=== PATIENT | female | born 1940 | race Caucasian/White ===

== ENCOUNTER 2021-11-02 14:10 | Outpatient (REF) | payer MEDICARE, MEDICAID, SELFPAY ==
--- NOTE | ~2021-11-02 | CT_ITS ---
NONCONTRAST CT OF THE CERVICAL, THORACIC, AND LUMBAR SPINE CLINICAL INFORMATION: Fall with pain and osteoporosis. COMPARISON: None TECHNIQUE: Multidetector CT acquisition of the cervical, thoracic, and lumbar spine obtained without contrast. FINDINGS: CERVICAL SPINE: Reversal the cervical lordosis with a kyphosis centered at C4. Rightward convex scoliotic curvature of the cervical spine. Anterior subluxation of C2 on C3 and C3 on C4. Severe disc volume loss at C3-C4, C4-C5, and C5-C6. Moderate disc volume loss at C6-C7. No acute fractures no acute subluxations. Craniocervical junction is intact. Intracranially there is partially imaged global cerebral volume loss and chronic microangiopathy. There is atherosclerotic calcification involving the carotid bifurcations bilaterally. Uncovertebral joint spurring and facet arthropathy result in severe left C2-C3, severe bilateral C3-C4, moderate left C4-C5, moderate left C5-C6, and moderate left C6-C7 foraminal stenosis. Disc osteophyte and ligamentum flavum thickening result in multilevel central canal stenosis throughout the cervical spine with suspected mass effect on the cervical spinal cord at the C2-C3 and C3-C4 levels that would be better assessed with MRI. THORACIC SPINE: There are indeterminate age upper endplate compression fractures at the T11 and T12 levels and there is mild indeterminate age biconcave height loss at T10. The remaining thoracic vertebral body heights are maintained. There are partially healed chronic appearing fractures involving the T9 and T10 spinous processes. Old healed left 11th and 12th rib fractures. There is mild anterior subluxation of T2 on T3, T3 on T4, T4-T5, and T5 and T6. There are no suspicious intraosseous lesions. There is dependent atelectasis at the lung bases. There is a 7 mm pulmonary nodule within the posterior aspect of the right lung on image 87 of series [address] for [address] a diagnostic CT of the chest is recommended to assess for additional pulmonary nodules and establish further follow-up recommendations. There is extensive atherosclerotic calcification throughout the thoracic aorta and there is a moderate-sized hiatal hernia. LUMBAR SPINE: Severe leftward convex scoliotic curvature of the lumbar spine associated with grade 2 left lateral listhesis of L3 on L4. Vertebral body burst fractures with posterior retropulsion at the L1 and L4 levels. There is significant retropulsion at L4 resulting in suspected severe central canal stenosis but should be correlated for cauda equina compression symptoms. At L1, there is a severe vertebral body burst fracture with retropulsion likely resulting in mild to moderate narrowing of the central canal. There are bilateral chronic appearing sacral fractures with adjacent sclerosis. There is cortical offset at S1-S2 and partially bridging bone formation across the site of cortical offset. Old healed left L3 transverse process fracture. There is an intraosseous hemangioma within the L5 vertebral body. Chronic appearing inferior endplate height loss at L3. Gallbladder surgically absent. Aortoiliac atherosclerotic calcification. Left renal atrophy. At L1-L2, right lateral disc osteophyte and facet arthropathy result in moderate to severe right foraminal stenosis with compression of the exiting right nerve root. At L2-L3, there is annular disc bulge the superimposed right lateral disc osteophyte protrusion and there is bilateral facet arthropathy. Right subarticular zone stenosis with suspected mass effect on the traversing right L3 nerve root and moderate right foraminal stenosis with mass effect on the extraforaminal right L2 nerve root. At L3-L4, L4 upper endplate retropulsion results in markedly severe central canal stenosis and disc osteophyte and facet arthropathy result in severe bilateral foraminal stenosis with compression of the exiting L3 nerve roots bilaterally. At L4-L5, annular disc bulge and severe bilateral facet arthropathy and ligamentum flavum thickening. There is likely mild narrowing of the central canal and there is severe left-sided foraminal stenosis with compression of the exiting left L4 nerve root. At L5-S1 there is a diffuse annular disc bulge and there is severe bilateral facet arthropathy and ligamentum flavum thickening. No central canal stenosis. Severe left foraminal stenosis with compression of the exiting left L5 nerve root. CT/CT cervical spine wo con IMPRESSION: - At L1, there is a severe age-indeterminate vertebral body burst fracture with retropulsion likely resulting in mild to moderate narrowing of the central canal. - At L4 there is a severe age-indeterminate vertebral body burst fracture with associated retropulsion resulting in markedly severe central canal stenosis at the L3-L4 level. This fracture can be definitively aged with MRI as clinically indicated. Recommend correlating for clinical signs of cauda equina compression. - There are bilateral chronic appearing sacral fractures with adjacent sclerosis. There is cortical offset at S1-S2 and partially bridging bone formation across the site of cortical offset. - Severe leftward convex scoliotic curvature of the lumbar spine associated with grade 2 left lateral listhesis of L3 on L4. Advanced spondylitic changes throughout the lumbar spine resulting in multilevel subarticular zone and multilevel foraminal stenosis with compression of multiple traversing and exiting nerve roots as discussed in detail above. - There are indeterminate age upper endplate compression fractures at the T11 and T12 levels and there is mild indeterminate age biconcave height loss at T10. A MRI can be obtained to age these fractures as clinically indicated if MRI is not contraindicated. There are partially healed chronic appearing fractures involving the T9 and T10 spinous processes. Old healed left 11th and 12th rib fractures. There is extensive atherosclerotic calcification throughout the thoracic aorta and there is a moderate-sized hiatal hernia. - Cervical kyphoscoliosis as described. Severe degenerative disc disease at C3-C4, C4-C5, and C5-C6. Uncovertebral joint spurring and facet arthropathy result in severe left C2-C3, severe bilateral C3-C4, moderate left C4-C5, moderate left C5-C6, and moderate left C6-C7 foraminal stenosis. Disc osteophyte and ligamentum flavum thickening result in multilevel central canal stenosis throughout the cervical spine with suspected mass effect on the cervical spinal cord at the C2-C3 and C3-C4 levels that would be better assessed with MRI. - There is a 7 mm pulmonary nodule within the posterior aspect of the right lung on image 87 of series [address] for which a diagnostic CT of the chest is recommended to assess for additional pulmonary nodules and establish further follow-up recommendations. Covering provider paged with these findings at 4:25 PM on 11/04/2021.
== END 2021-11-02 14:11 | disposition home or self-care (01) ==
LOC: HO.CT 14:10
PROVIDERS: PCP Internal Medicine; Visit Provider Nurse Practitioner Gerontology
DX: M54.50 Low back pain, unspecified (principal); M54.6 Pain in thoracic spine; M85.80 Other specified disorders of bone density and structure, unspecified site; Z91.81 History of falling
CPT/HCPCS: 72125; 72128; 72131

== ENCOUNTER 2021-11-04 18:51 | Emergency (ER) | payer MEDICARE, MEDICAID, SELFPAY ==
[2021-11-04 19:08] VITALS: BP 140/58; BP 146/83; PULSE 63; PULSE 68; RESP 16; TEMP 37.1; O2SAT 95; O2SAT 97; BMI 20.6
[2021-11-04 19:59] VITALS: BP 133/52; PULSE 64; RESP 14; TEMP 36.8; O2SAT 98
--- NOTE | 2021-11-04 20:43 | ED_ITS ---
HPI - General Adult General Chief complaint: Recheck/Abnormal Lab/Rx Stated complaint: SNF-spinal fx VSS Time Seen by Provider: 11/04/21 20:32 History of Present Illness HPI narrative: 81-year-old female who was sent to the emergency department from her nursing facility for evaluation abnormal findings on a CT scan of the back. According to the nursing notes the patient had a fall on 10/23/2021. CT scans were done today of the patient's cervical, thoracic and lumbar sacral back. Radiologist noted multiple fractures of on determined age and recommended MRI if clinically appropriate. On my review of this reading of following are the most significant: - At L1, there is a severe age-indeterminate vertebral body burst fracture with retropulsion likely resulting in mild to moderate narrowing of the central canal. ? - At L4 there is a severe age-indeterminate vertebral body burst fracture with associated retropulsion resulting in markedly severe central canal stenosis at the L3-L4 level. This fracture can be definitively aged with MRI as clinically indicated. Recommend correlating for clinical signs of cauda equina compression. There are indeterminate age upper endplate compression fractures at the T11 and T12 levels and there is mild indeterminate age biconcave height loss at T10. A MRI can be obtained to age these fractures as clinically indicated if MRI is not contraindicated. The patient has no complaints. The patient states she has pain all over her entire body. She denies any numbness or weakness. She denies loss of bowel or bladder control. ? Related Data Allergies Allergy/AdvReac Type Severity Reaction Status Date / Time No Known Allergies Allergy Verified 11/04/21 19:12 Review of Systems Verdana 4l Review of Systems: Yes all other systems are reviewed and Verdana 4d are negative [facility] Past Medical History [facility] Narrative: Past medical history: Altered mental status, arthritis multiple sites, hypertensive heart disease without heart failure, hyperlipidemia, dysphagia, muscle weakness generalized, osteoporosis, overactive bladder, unsteady and feet, gait mobility abnormalities, weakness, dementia without behavioral disturbances. Social history: The patient is a resident of a long-term care facility. Social History Social History Advance Directives: No Advance Directives Information Provided: Yes Physical Exam Verdana 4l Vital Signs: Verdana 4d Verdana 4d Vital Signs: Verdana 4d Verdana 4Bd Last Vital Signs Verdana 4d Maintenance Associate New 4d Maintenance Associate New 4d Temp 98.2 F 11/04/21 19:59 Maintenance Associate New 4d Pulse 57 11/04/21 20:55 Maintenance Associate New 4d Resp 18 11/04/21 20:55 BP 161/50 H 11/04/21 20:55 Pulse Ox 97 11/04/21 20:55 BMI result Body Mass Index 20.6 Const: Other: Awake, alert, female patient, oriented to person, lacks insight as to why she is here in the emergency department Orientation/consciousness: oriented to person HENMT: Head: Yes normal to inspection, Yes normocephalic and Yes atraumatic Ears: external ears normal General nose exam: Normal external nose present Face and sinus: Yes normal facial exam Mouth: Normal oral and palatal mucosa present Throat: Yes posterior oropharynx normal Eyes: General: appearance normal, both eyes and all related structures Pupils: Equal, round and reactive pupils present Neck: Neck: Yes normal visual inspection, Yes no lymphadenopathy, Yes trachea midline and Yes supple Chest: Chest palpation & inspection: normal inspection of the chest and normal palpation of entire chest wall Resp: Effort & Inspection: normal respiratory effort and able to speak in complete sentences Auscultation: clear to auscultation bilaterally Cardio: Rate: regular rate Rhythm: regular rhythm Heart sounds: S1 normal heart sound present, S2 normal heart sound present and no murmurs GI: Inspection: Yes normal to inspection Palpation (GI): Soft to palpation, nontender and no guarding Auscultation: normal bowel sounds Back/Spine/Pelvis: Other: Patient has no localizing tenderness of her vertebrae, she does have diffuse tenderness her paraspinal muscles bilaterally, there is no ecchymosis or soft tissue swelling noted. She has negative straight leg raises bilaterally. She moves all extremities symmetrically with good strength. The patient has normal light touch to both her upper and lower extremities. The patient's has normal sensory to pinprick around her anus and perirectal area. The patient's rectal tone is normal and she is able to squeeze down with her rectum on my finger without any difficulty Skin: General skin exam: no rashes or lesions noted Neuro: General: oriented to person Cranial nerves: Yes CN's II-XII intact bilaterally and Yes Equal, round and reactive pupils present Cognition (Neuro): normal cognition Motor exam (neuro): Other motor observations present (Strength is symmetric throughout her upper and lower extremity) Extrem: General: Yes normal to inspection Psych: Appearance: grossly normal Speech and movement: Normal speech and movement present Affect: normal affect Attitude: cooperative Thought process: Normal thought process present Course Course Course Narrative: 81-year-old female who had a fall on 10/23/2020, the patient had a CT scan of the cervical, thoracic and lumbar spine done on 11/02/2021. The CT scans had multiple findings were consistent with arthritis and degenerative joint disease which is appropriate for her age. There also multiple findings of compression fractures of undetermined it age. The radiologist did recommend MRI of the thoracic and lumbar spine if there was a clinical indication especially if there was signs of caudal equinus syndrome. The patient has no localizing tenderness with palpation over her vertebrae. She has symmetric upper and lower extremity strength. She has normal upper and lower extremity light touch sensation. She has no perirectal numbness, she is able to feel pinprick in this area. She has normal rectal tone and there has been no reported incontinence of stool. Given these findings, I do not think that the patient needs an emergent MRI and the patient can be discharged back to her care facility. If her provider feels that she needs an MRI to determine the age of these fractures then this can be pursued as an outpatient. The primary contact is listed as Verónica Dawn who is an real estate attorney. I attempted to contact the provider covering for the patient's nursing facility however there does not appear to be a contact service and the ED study hall supervisor left a message on the voicemail. Therefore, my plan is to discharge the patient back to her facility. Discharge Plan Discharge Clinical Impression: Fall, Chronic vertebral fracture due to osteoporosis Patient Disposition: Home, Self-Care Additional Instructions: I did review the CT scans of the patient's cervical, thoracic spine and lumbar sacral spine. The reading has multiple abnormalities that I believe are consistent with chronic osteoporosis and compression fractures. The patient is able to move all her extremities symmetrically with good strength, she has normal sensory exam. The patient has no localizing tenderness of her vertebrae on my examination. The patient has no alton rectal anesthesia and feel pinprick around her anus without any difficulty. Her rectal exam revealed good sphincter tone. Given these findings, I do not think that the patient has any acute neurologic deficit or evidence for cauda equina syndrome. I do not think the patient needs an emergent or urgent MRI and if the provider caring for her wants to determine the age of her compression fractures they can get an MRI as an outpatient. I attempted to call the on-call provider service and left a message on the voicemail. I contacted the patient's primary contact and this is an real estate attorney with a voicemail.
--- NOTE | 2021-11-04 20:54 | PC.NURSE ---
This RN to bedside with Dr Benitez for rectal exam
[2021-11-04 20:55] VITALS: BP 161/50; PULSE 57; RESP 18; O2SAT 97
--- NOTE | 2021-11-04 22:07 | PC.NURSE ---
This RN calling [facility], speaking to Brigitte ROSE at facility and notifying of Dr Benitez's plan for DC with outpt MRI. Brigitte asking to speak to Dr Benitez. Dr Benitez on phone at this time speaking with Brigitte RN
[2021-11-04 23:50] VITALS: BP 161/59; PULSE 62; RESP 17; TEMP 36.6; O2SAT 98
== END 2021-11-05 00:39 | disposition home or self-care (01) ==
PROVIDERS: Emergency Provider Emergency Medicine Emergency Medical Services
DX: M80.88XA Other osteoporosis with current pathological fracture, vertebra(e), initial encounter for fracture (principal); R79.89 Other specified abnormal findings of blood chemistry; Z79.899 Other long term (current) drug therapy
CPT/HCPCS: 99283

== ENCOUNTER 2024-04-10 11:17 | Inpatient (IN) | payer MEDICARE, MEDICAID, SELFPAY ==
[2024-04-10] VITALS (8 sets, daily range): BP systolic 136–192; BP diastolic 57–90; PULSE 72–95; RESP 14–20; TEMP 36.2–37.8; O2SAT 95–99; BMI 20.5
--- NOTE | ~2024-04-10 | XR_ITS ---
EXAMINATION: XR HIP, RIGHT CLINICAL INFORMATION: Pain following fall COMPARISON: None available. TECHNIQUE: Two views of the right hip and AP pelvis FINDINGS: There is no acute fractures seen in the pelvis or right hip. There is healed fracture deformity of inferior ramus pubis on the right. Vascular calcifications present. XR/XR hip RT min 2V IMPRESSION: No acute fracture
--- NOTE | ~2024-04-10 | XR_ITS ---
EXAMINATION: XR CHEST CLINICAL INFORMATION: Femur COMPARISON: None available. TECHNIQUE: Frontal view of the chest was obtained. FINDINGS: No significant abnormality is noted involving the heart, lungs, mediastinum, bony thorax or soft tissues. XR/XR chest 1V IMPRESSION: Unremarkable examination.
--- NOTE | ~2024-04-10 | CT_ITS ---
EXAMINATION: CT ABDOMEN AND PELVIS WITH CONTRAST CLINICAL INFORMATION: Abdominal pain COMPARISON: CT lumbar spine from 11/02/2021 TECHNIQUE: Multidetector volumetric images were obtained from the superior aspect of the liver through the pubic symphysis following administration 85 mL of Omnipaque 350 intravenous contrast. Sagittal and coronal reformatted images were obtained on the technologist's workstation. Oral contrast: No This CT examination was performed using dose optimization techniques as appropriate, variously including the following: *Automated exposure control *Adjustment of mA and/or kV according to patient size (this includes techniques or standardized protocols for targeted exams where dose is matched to indication/reason for exam; i.e. extremities or head) *Use of iterative reconstruction technique DLP: 484 mGy-cm FINDINGS: LUNG BASES: There is 0.8 cm nodule at the right lung base and subpleural nodules and pleural thickening seen on the left. Cardiomegaly LIVER, GALLBLADDER, AND BILIARY TREE: The liver is normal in size, shape, and attenuation. No focal hepatic lesion or biliary ductal dilatation is present. Gallbladder is surgically absent. PANCREAS: Unremarkable. SPLEEN: Plain is massively enlarged, measured 14.2 x 7.3 x 10.4 cm. ADRENAL GLANDS: Unremarkable. KIDNEYS AND URETERS: Right kidney is unremarkable. Left kidney revealed chronic hydronephrosis with atrophic cortex . Left ureter is BLADDER: Unremarkable. GASTROINTESTINAL TRACT: There is abnormal cecum and ascending colon with circumferentially thickened wall and stranding of pericolonic fat. Transverse colon is unremarkable. Descending colon revealed collapse of the lumen. Appendix is not identified. Small bowel loops are unremarkable Rectum is circumferentially thickened sigmoid colon is mildly thickened. There is no diverticulosis or diverticulitis. ABDOMINAL WALL: No significant hernia is appreciated. LYMPH NODES: Normal. VASCULAR: Aorta is calcified and tortuous but not dilated PELVIC VISCERA: Uterus is surgically absent OSSEOUS STRUCTURES: There is stable compression deformity of L4, L1, T11 vertebral bodies and offset of S1 over S2. There is increase attenuation of the entire sacrum stable since previous study of There is marked levoscoliosis of lumbar spine CT/CT abdomen pelvis w IV con IMPRESSION: 1. Splenomegaly. 2. Abnormal cecum and ascending colon with circumferential wall thickening and stranding of pericolonic fat. Correlate clinically for colitis. 3. Chronic hydronephrosis on the left with atrophic cortex. 4. Multiple compression fractures and offset of S1 over S2, stable since 2021. 5. Status post cholecystectomy and hysterectomy. 6. Cardiomegaly. 7. 8 mm nodule at the right lung base and pleural thickening on the left. Fleischner guidelines were followed.
[2024-04-10 12:12] LABS: Basophils Absolute Auto 0.1 X10*3/uL (0.0-0.2); Basophils Percent Auto 0.3 % (0-2); Eosinophils Absolute Auto 0.1 X10*3/uL (0.0-0.4); Eosinophils Percent Auto 0.2 % (0-4); Hematocrit 26.7 % (37.0-47.0); Hemoglobin 8.5 g/dl (12.0-16.0); Imm Gran Abs Auto 0.98 X10*3/uL (0.00-0.03); Imm Gran Pct Auto 3.2 % (0.0-0.4); Lymphocytes Percent Auto 37.8 % (20-40); MANUAL DIFF FLAG SCAN; Mean Corpuscular HGB Conc 31.8 g/dl (31.0-35.0); Mean Corpuscular Hemoglobin 30.8 pg (27.0-33.0); Mean Corpuscular Volume 96.7 fL (80.0-98.0); Mean Platelet Volume 10.4 fL (9.4-12.3); Monocytes Absolute Auto 1.8 X10*3/uL (0.1-1.2); Monocytes Percent Auto 5.8 % (2-11); NRBC Pct Auto 0.1 /100WBC (0.0-0.2); Neutrophils Percent Auto 52.7 % (45-73); Platelet Count 246 X10*3/uL (160-400); Red Blood Count 2.76 X10*6/uL (4.20-5.50); Red Cell Distribution Width 14.4 % (11.0-16.0); SCAN SMEAR FLAG 1
[2024-04-10 12:20] LABS: Lymphocytes Absolute Auto 11.5 X10*3/uL (1.2-4.9); White Blood Count 30.4 X10*3/uL (4.8-10.8)
--- NOTE | 2024-04-10 12:29 | PC.NURSE ---
[facility] thrive. per EMS, patient has been treated for UTI - wbc increased per paperwork. increased altered mental - history of dementia. patient tearful in room, looking to speak with her mother. continues to state you're all trying to kill me, I'm never coming back here . patient very tearful. IV established, labs obtained and sent. straight cath performed w/ approx 100mL output. urine sent to lab. second set of cultures being obtained at this time.
[2024-04-10 12:35] LABS: Appearance Urine Clear; Color Urine Yellow; Glucose Urine UA Negative (Negative); Leukocyte Esterase Urine Small (1+) (Negative); Nitrite Urine Negative (Negative); PH 5.5 (5.0-9.0); Specific Gravity - Urine 1.015 (1.005-1.025); UMIC TRIGGER UACC YES; Urine Blood Small (1+) (Negative); Urine Ketones 15 mg/dL (Negative); Urine Protein 30 (1+) mg/dL (Neg-Trace)
[2024-04-10] MEDS: Acetaminophen 325 MG TABLET 975 MG PO (12:55)
[2024-04-10 13:02] LABS: SLIDE REVIEW VERIFIED
[2024-04-10 13:18] LABS: Lactic Acid 0.7 mmol/L (0.5-2.0)
[2024-04-10 13:22] LABS: Bacteria Urine Trace (None Seen); Hyaline Casts Urine 0-2 /LPF (0-2); RBC Urine 0-2 /HPF (0-2); Squamous Epithelial Cell Urine 0-2 /HPF (0-2); UACC Culture Trigger YES
--- NOTE | 2024-04-10 13:23 | ED_ITS ---
HPI - Weakness General Chief complaint: Failure to Thrive Stated complaint: FAILURE TO THRIVE DEMENTIA Time Seen by Provider: 04/10/24 11:33 Source: EMS Mode of arrival: EMS Limitations: altered mental status History of Present Illness ED Provider: Dr. Cooper HPI Narrative: Patient with severe dementia, is currently on cefuroxime for ecoli UTI but now appears more lethargic, falling and crying more. MD Complaint: generalized weakness Onset (ago): day(s) Duration: constant Related Data Allergies Allergy/AdvReac Type Severity Reaction Status Date / Time No Known Allergies Allergy Verified 04/10/24 11:40 Review of Systems 2 Review of Systems: Yes Unobtainable due to mental status Neurologic: Denies Sensory deficit (Neuro) REPLACED BY [facility] Social History Social History Advance Directives: No Advance Directives Information Provided: No Do you have a plan to hurt others: No Plan Physical Exam 2 Vital Signs: Vital Signs: Last Vital Signs Temp 100.0 F 04/10/24 11:27 Pulse 90 04/10/24 11:27 Resp 18 04/10/24 11:27 BP 159/67 H 04/10/24 11:27 Pulse Ox 98 04/10/24 12:27 O2 Del Method Room Air 04/10/24 12:27 BMI result Body Mass Index 20.5 Const: Other: thin frail elderly female, tearful Orientation/consciousness: oriented to person Limitations: altered mental status HEENT: Head: Yes normal to inspection Ears: external ears normal General nose exam: Normal external nose present Mouth: Normal oral and palatal mucosa present and oropharynx normal Throat: Yes posterior oropharynx normal Eyes: General: appearance normal, both eyes and all related structures Neck: Other: supple Neck: Yes normal visual inspection Chest: Chest palpation & inspection: normal inspection of the chest Resp: Auscultation: clear to auscultation bilaterally Cardio: Jugular venous distension: no JVD Rate: regular rate Rhythm: r egular rhythm Heart sounds: S1 normal heart sound present and S2 normal heart sound present GI: Inspection: Yes normal to inspection Palpation (GI): Soft to palpation, nontender and No hepatosplenomegaly present Auscultation: normal bowel sounds : General: Yes no CVA tenderness Back/Spine/Pelvis: Back: no CVA tenderness Skin: General skin exam: no rashes or lesions noted Neuro: General: oriented to person Cranial nerves: Yes CN's II-XII intact bilaterally Motor exam (neuro): 5/5 motor strength present throughout S ensory Exam: No Sensory deficit (Neuro) Extrem: General: Yes normal to inspection Psych: Other: tearful Course Reevaluation(s) Reevaluation #1: patient with elevated WBC of 30k, will admit for IV abx Time: 13:32 Medications Administered Discontinued Medications Generic Name Dose Route Start Last Admin Trade Name Freq PRN Reason Stop Dose Admin Acetaminophen 975 mg 04/10/24 11:46 04/10/24 12:55 Acetaminophen 325 Mg Tablet PO 04/10/24 11:47 975 mg ONCE ONE Administration Medical Decision Making Differential Diagnosis Differential Diagnoses: The differential diagnosis associated with the presentation includes (UTI, bacteremia, dehydration) Admission/Observation Consideration of admission/observation: Escalation of care including admission/observation considered (upon arrival patient considered for admission) Consult Healthcare Provider Management of the patient was discussed with: Hospitalist Lab Data 04/10/24 12:03 04/10/24 12:03 Labs: Lab Results 04/10/24 04/10/24 04/10/24 Range/Units 12:03 12:24 12:52 WBC 30.4 H* (4.8-10.8) X10*3/uL RBC 2.76 L (4.20-5.50) X10*6/uL Hgb 8.5 L (12.0-16.0) g/dl Hct 26.7 L (37.0-47.0) % MCV 96.7 (80.0-98.0) fL MCH 30.8 (27.0-33.0) pg MCHC 31.8 (31.0-35.0) g/dl RDW 14.4 (11.0-16.0) % Plt Count 246 (160-400) X10*3/uL MPV 10.4 (9.4-12.3) fL Immature Gran % (Auto) 3.2 H (0.0-0.4) % Neut % (Auto) 52.7 (45-73) % Lymph % (Auto) 37.8 (20-40) % [place] % (Auto) 5.8 (2-11) % Eos % (Auto) 0.2 (0-4) % Baso % (Auto) 0.3 (0-2) % Lymph # (Auto) 11.5 H (1.2-4.9) X10*3/uL [place] # (Auto) 1.8 H (0.1-1.2) X10*3/uL Eos # (Auto) 0.1 (0.0-0.4) X10*3/uL Baso # (Auto) 0.1 (0.0-0.2) X10*3/uL Abs Immat Gran (auto) 0.98 H (0.00-0.03) X10*3/uL Absolute Neuts (auto) 16.0 H (2.0-8.3) x10*3/uL Absolute Nucleated RBC 0.020 H (0.0-0.012) X10*3/uL Nucleated RBC % (auto) 0.1 (0.0-0.2) /100WBC Smear Tech's Comments VERIFIED Lactic Acid 0.7 (0.5-2.0) mmol/L Urine Color Yellow Urine Appearance Clear Urine pH 5.5 (5.0-9.0) Ur Specific [place] 1.015 (1.005-1.025) Urine Protein 30 (1+) H (Neg-Trace) mg/dL Urine Glucose (UA) Negative (Negative) mg/dL Urine Ketones 15 (Negative) mg/dL Urine Blood Small (1+) H (Negative) Urine Nitrite Negative (Negative) Ur Leukocyte Esterase Small (1+) H (Negative) Urine RBC 0-2 (0-2) /HPF Urine WBC 6-10 (0-5) /HPF Ur Squamous Epith Cells 0-2 (0-2) /HPF Urine Bacteria Trace (None Seen) Hyaline Casts 0-2 (0-2) /LPF Independent Interpretation I performed an independent interpretation of an: Plain X-Ray (no infiltrate) Independent Historian Clinical information obtained from an independent historian. History obtained from or confirmed by: EMS External Record Review External record reviewed: Outpatient record Chronic Conditions Patient?s care impacted by: Other (dementia) Discharge Plan Discharge Clinical Impression: Acute UTI, Leukocytosis Patient Disposition: Admitted As Inpatient Print Language: Croatian
[2024-04-10 13:52] LABS: Anion Gap 14 (12-20); Blood Urea Nitrogen 20 mg/dL (9-16); Calcium 8.3 mg/dL (8.4-10.2); Carbon Dioxide 24 mmol/L (22-29); Chloride 105 mmol/L (96-108); Creatinine Clr Calc Pharmacy 30.1; Estimated Glomerular Filt Rate 44; Glucose Random 104 mg/dL (60-115); Potassium 4.3 mmol/L (3.3-5.1); Sodium 139 mmol/L (135-145)
[2024-04-10] MEDS: cefTRIAXone sodium 1 GM in 0.9 % Sodium Chloride 50 ML IV (13:53)
--- NOTE | 2024-04-10 15:05 | PC.NURSE ---
patient one assist up to commode. patient had watery bowel movement, plan to obtain cdiff sample
--- NOTE | 2024-04-10 15:16 | PHA.MEDREC ---
Pharmacy Consult ? Medication Reconciliation Pharmacy has completed the medication reconciliation. Patient from [facility] with med list. Tamara Holman, [facility]
--- NOTE | 2024-04-10 15:41 | P.HPHOSP_ITS ---
History of Present Illness Date of Service: 04/10/24 Chief Complaint: lethargy 83yo F long-term resident of [facility] with severe dementia sent in with increasing lethargy, poor PO intake, and frequent falls. She is minimally verbal and as such, history obtained from review of SNF records and per the ED physicians. She was diagnosed with an E coli UTI and started cefuroxime on 04/04/24. She was also noted to have CATHY/CKD3 with SCr 1.81on 04/04/24 (unknown baseline SCr) and was given a liter of 1L IV NS with improvement in the SCr to 1.5. Here SCr is 1.17. Temp is 100, HR 90, BP 159/67, RR 18. She has a marked leukocytosis with WBC of 30.4, with normal differential. CRP pending. She had a large, loose watery stool and Cdiff assay was ordered. Review of Systems 2 Review of Systems: Yes Unobtainable due to mental status [facility] Medical History (Updated 04/10/24 @ 15:48 by Carmine Vasquez MD) Overactive bladder Hyperlipidemia Vertebral compression fracture Osteoarthritis Dementia Hypertension Social History Advance Directives: No Advance Directives Information Provided: No Do you have a plan to hurt others: No Plan Meds Allergies Allergy/AdvReac Type Severity Reaction Status Date / Time No Known Allergies Allergy Verified 04/10/24 11:40 Active Medications: Current Medications Acetaminophen (Acetaminophen 325 Mg Tablet) 650 mg PO Q6H PRN PRN Reason: Pain, Mild (Pain Scale 1-3), fever or headache Calcium Carbonate/Cholecalciferol (Calcium + Vitamin D 250 Mg Tablet) 500 mg PO DAILY [facility] Enoxaparin Sodium (Enoxaparin Sodium 30 Mg/0.3 Ml Syringe) 30 mg SUBCUT Q24H [facility] Ferrous Sulfate (Ferrous Sulfate 324 Mg Tablet.Dr) 324 mg PO DAILY [facility] Gabapentin (Gabapentin 100 Mg Capsule) 100 mg PO BID [facility] Losartan Potassium (Losartan Potassium 25 Mg Tablet) 25 mg PO DAILY [facility]; Protocol Magnesium Hydroxide (Milk Of Magnesia 30 Ml Oral.Susp) 30 ml PO DAILY PRN PRN Reason: Constipation Ondansetron HCl (Ondansetron Hcl 4 Mg/2 Ml Vial) 4 mg IVPUSH Q8H PRN PRN Reason: Nausea and Vomiting Polyethylene Glycol (Polyethylene Glycol 3350 17 Gm Powd.Pack) 17 gm PO DAILY PRN PRN Reason: Constipation Senna (Sennosides 8.6 Mg Tablet) 17.2 mg PO BEDTIME [facility] Sodium Chloride (0.9 % Sodium Chloride Flush 3 Ml Syringe) 3 ml IVFLUSH QSHIFT ERR[facility] Home Medications ?Medication ?Instructions ?Recorded ?Confirmed ?Last Taken ?Type acetaminophen 500 mg tablet 1,000 mg PO TID 04/10/24 04/10/24 04/09/24 History calcium carbonate 600 mg-vitamin 1 tab PO DAILY 04/10/24 04/10/24 04/09/24 History D3 10 mcg (400 unit) tablet (Calcium 600 + D(3)) cefuroxime axetil 250 mg tablet 250 mg PO BID 04/10/24 04/10/24 04/09/24 History celecoxib 200 mg capsule 200 mg PO DAILY 04/10/24 04/10/24 04/09/24 History ferrous sulfate 325 mg (65 mg 325 mg PO DAILY 04/10/24 04/10/24 04/09/24 History iron) tablet gabapentin 100 mg capsule 100 mg PO BID 04/10/24 04/10/24 04/09/24 History losartan 25 mg tablet 25 mg PO DAILY 04/10/24 04/10/24 04/09/24 History menthol 5 % topical patch (Icy Hot 1 patch topical DAILY 04/10/24 04/10/24 04/10/24 History (menthol)) sennosides 8.6 mg tablet (senna) 17.2 mg PO BEDTIME 04/10/24 04/10/24 04/09/24 History Physical Exam 2 Vital Signs and Narrative: Vital Signs: Last Vital Signs Temp 98.6 F 04/10/24 13:57 Pulse 72 04/10/24 13:57 Resp 20 04/10/24 13:57 BP 147/57 H 04/10/24 13:57 Pulse Ox 95 04/10/24 13:57 O2 Del Method Room Air 04/10/24 13:57 BMI result Body Mass Index 20.5 Gen: in no acute distress HEENT: sclera anicteric, dry mucus membranes Neck: supple Lungs: clear to auscultation bilaterally Heart: regular rate and rhythm, no murmurs Abd: soft, diffuse tenderness without reboud/guarding : no CVA tenderness Ext: no edema Skin: warm/well-perfused Neuro: alert, minimally verbal, moving all extremities Psych: impaired insight Results Labs 04/10/24 12:03 04/10/24 12:52 Labs: Laboratory Results - last 24 hr 04/10/24 04/10/24 04/10/24 12:03 12:24 12:52 MCV 96.7 MCH 30.8 MCHC 31.8 RDW 14.4 Plt Count 246 MPV 10.4 Immature Gran % (Auto) 3.2 H Neut % (Auto) 52.7 Lymph % (Auto) 37.8 [place] % (Auto) 5.8 Eos % (Auto) 0.2 Baso % (Auto) 0.3 Lymph # (Auto) 11.5 H [place] # (Auto) 1.8 H Eos # (Auto) 0.1 Baso # (Auto) 0.1 Abs Immat Gran (auto) 0.98 H Absolute Neuts (auto) 16.0 H Absolute Nucleated RBC 0.020 H Nucleated RBC % (auto) 0.1 Smear Tech's Comments VERIFIED Anion Gap 14 Estim Creat Clear Calc 30.1 Estimated GFR 44 Random Glucose 104 Lactic Acid 0.7 Calcium 8.3 L Urine Color Yellow Urine Appearance Clear Urine pH 5.5 Ur Specific [place] 1.015 Urine Protein 30 (1+) H Urine Glucose (UA) Negative Urine Ketones 15 Urine Blood Small (1+) H Urine Nitrite Negative Ur Leukocyte Esterase Small (1+) H Urine RBC 0-2 Urine WBC 6-10 Ur Squamous Epith Cells 0-2 Urine Bacteria Trace Hyaline Casts 0-2 Assessment and Plan (1) Leukocytosis: Status: Acute (2) Acute UTI: Status: Acute Plan 83yo F long-term resident of [facility] with severe dementia sent in with increasing lethargy, poor PO intake, and frequent falls. Recently diagnosed E coli UTI treated with cefuroxime and recently got IV fluids for CATHY/CKD3. Noted to have marked leukocytosis, abd tenderness, and 1 episode of diarrhea. leukocytosis - Admit to M/S. high suspicion for Cdiff- start empiric vancomycin pending Cdiff assay. Also given abd pain will obtain CT A/P to assess for colitis UTI - continue treatment but with ceftriaxone; BCx + UCx sent; if negative, will d/c antibiotics as pt will have completed a full 7-day course acute encephalopathy due to infection superimposed on dementia - treat infection as above CATHY/CKD3 - unknown baseline SCr; Cr improving; continue IV fluids chronic pain - continue gabapentin VTE ppx - LMWH dispo - return to LTC eventually code - DNI per [facility] I anticipate that the patient will stay at least 2 midnights as an inpatient in the hospital due to the above reasons. It is neither reasonable nor safe to care for them in a less acute setting. I called the number listed as her contact from the SNF, a friend Chantelle Angel in [facility] [place]. I left a message for her to call back. In the EHR, her contact is listed as Oil Deliverer Verónica Dawn in [place], [place]. Quality Stroke Does the patient have a stroke diagnosis?: No VTE Prior VTE?: No VTE Risk Level:: Medical - moderate - high VTE Device Contraindication: N/A - Device Ordered VTE Drug Contraindication: N/A - Med Ordered
[2024-04-10] MEDS: 0.9 % Sodium Chloride 1,000 ML 75 ML IVCONT (16:19)
[2024-04-10] MEDS: Enoxaparin Sodium 30 MG/0.3 ML SYRINGE SUBCUT (16:19)
--- NOTE | 2024-04-10 16:25 | PC.NURSE ---
patient placed into hospital bed w/ alarm on. patient continues to be tearful intermittently, requesting to go home and see her mother. redirected back into bed, continues to be tearful. medicated per the MAR, call duffy within reach/bed alarm on
[2024-04-10 16:28] LABS: C Reactive Protein 14.57 mg/dL (< or = 0.50)
[2024-04-10] MEDS: vancomycin HCL 125 MG CAPSULE PO (18:28)
[2024-04-10] MEDS: iohexoL 350 MG/ML 100 ML INFUS..BTL 85 ML IV (18:59)
--- NOTE | 2024-04-10 19:32 | MHC.EDTECH ---
Assisted with this patient,attempted to ambulate to the bathroom,patient was unsteady, bedside commode at bedside ,patient urinated alton-care given,patient is back in bed with bed alarm on for safety,patient is tearful reassurance given RN was made aware call duffy in reach
--- NOTE | 2024-04-10 19:57 | PC.NURSE ---
this RN resumed care of pt at 1845. pt alert and oriented to self only. vss and up to date aside from being hypertensive. pt extremely tearful while obtaining vitals - will reattempt when pt is more relaxed. pt tearful/asking for her mother. attempts made at reorienting pt but unsuccessful. pt requesting to use the restroom - unsteady gait w/ a 1:1 assist. bedside commode utilized instead. pt repositioned back into bed to promote comfort. bed alarm turned on for safety precautions. no sob/wob noted. respirations even/unlabored. plan of care ongoing. call duffy placed within reach.
--- NOTE | 2024-04-10 20:25 | PC.NURSE ---
pt is NPO. Hold PO meds per doctor's order
[2024-04-10] MEDS: LORazepam 2 MG/ML VIAL 1 MG IVPUSH (22:47)
--- NOTE | 2024-04-10 22:52 | PC.NURSE ---
pt was anxious, crying. Doctor Sherman notified, one time dose of ativan administered to reduce anxiety
[2024-04-11] MEDS: 0.9 % Sodium Chloride 1,000 ML 75 ML IVCONT ×2 (05:29→17:52)
[2024-04-11 08:00] VITALS: BP 156/68; PULSE 81; RESP 16; TEMP 36.1; O2SAT 95
--- NOTE | 2024-04-11 09:01 | MHC.CM.PN ---
IMM DELIVERED TO [facility] VIA TELEPHONE, WHITE COPY TO BE MAILED AND YELLOW COPY TO CHART. PT IS A LTC RESIDENT OF [facility] SN[facility]. PT IS DEPENDENT WITH CARE. [facility] REQUESTED FROM [facility] WITH RETURN REFERRAL. PT WILL RETURN VIA BLS ON DC. CM WILL CONTINUE TO FOLLOW FOR ANY CHANGE TO DC PLAN.
--- NOTE | 2024-04-11 09:30 | HO.PM.IMPN ---
Subjective Subjective Date of Service: 04/11/24 Interval History: agitated overnight, got 1 mg IV lorazepam now calm no further diarrhea Review of Systems Review of Systems: Yes Unobtainable due to mental status Physical Exam Vital Signs: Vital Signs: Last Vital Signs Temp 97.0 F 04/11/24 08:00 Pulse 81 04/11/24 08:00 Resp 16 04/11/24 08:00 BP 156/68 H 04/11/24 08:00 Pulse Ox 95 04/11/24 08:00 O2 Del Method Room Air 04/11/24 08:00 BMI result Body Mass Index 20.5 Gen: in no acute distress HEENT: sclera anicteric, dry mucus membranes Neck: supple Lungs: clear to auscultation bilaterally Heart: regular rate and rhythm, no murmurs Abd: soft, diffuse tenderness without reboud/guarding : no CVA tenderness Ext: no edema Skin: warm/well-perfused Neuro: alert, minimally verbal, moving all extremities Psych: impaired insight Objective Data Active Medications Acetaminophen (Acetaminophen 325 Mg Tablet) 650 mg PO Q6H PRN PRN Reason: Pain, Mild (Pain Scale 1-3), fever or headache Calcium Carbonate/Cholecalciferol (Calcium + Vitamin D 250 Mg Tablet) 500 mg PO DAILY [facility] Enoxaparin Sodium (Enoxaparin Sodium 30 Mg/0.3 Ml Syringe) 30 mg SUBCUT Q24H [facility] Last Admin: 04/10/24 16:19 Dose: 30 mg Documented By: HOPE Ferrous Sulfate (Ferrous Sulfate 324 Mg Tablet.) 324 mg PO DAILY [facility] Gabapentin (Gabapentin 100 Mg Capsule) 100 mg PO BID [facility] Last Admin: 04/10/24 21:28 Dose: Not Given Documented By: KAMARI Non-Admin Reason: NPO Sodium Chloride (Ns) 1,000 mls @ 75 mls/hr IVCONT .[id number] [facility] Last Admin: 04/11/24 05:29 Dose: 75 mls/hr Documented By: KAMARI Ceftriaxone Sodium 1 gm/ (Sodium Chloride) 50 mls @ 100 mls/hr IV Q24H [facility] Losartan Potassium (Losartan Potassium 25 Mg Tablet) 25 mg PO DAILY [facility]; Protocol Magnesium Hydroxide (Milk Of Magnesia 30 Ml Oral.Susp) 30 ml PO DAILY PRN PRN Reason: Constipation Ondansetron HCl (Ondansetron Hcl 4 Mg/2 Ml Vial) 4 mg IVPUSH Q8H PRN PRN Reason: Nausea and Vomiting Polyethylene Glycol (Polyethylene Glycol 3350 17 Gm Powd.Pack) 17 gm PO DAILY PRN PRN Reason: Constipation Senna (Sennosides 8.6 Mg Tablet) 17.2 mg PO BEDTIME [facility] Last Admin: 04/10/24 21:28 Dose: Not Given Documented By: KAMARI Non-Admin Reason: NPO Sodium Chloride (0.9 % Sodium Chloride Flush 3 Ml Syringe) 3 ml IVFLUSH QSHIFT [facility] Last Admin: 04/11/24 00:16 Dose: Not Given Documented By: KAMARI Non-Admin Reason: Previously Administered Vancomycin HCl (Vancomycin Hcl 125 Mg Capsule) 125 mg PO Q6H [facility] Last Admin: 04/11/24 05:34 Dose: Not Given Documented By: KAMARI Non-Admin Reason: NPO Labs 04/10/24 12:03 04/10/24 12:52 Labs: Laboratory Results - last 24 hr 04/10/24 04/10/24 04/10/24 12:03 12:24 12:52 MCV 96.7 MCH 30.8 MCHC 31.8 RDW 14.4 Plt Count 246 MPV 10.4 Immature Gran % (Auto) 3.2 H Neut % (Auto) 52.7 Lymph % (Auto) 37.8 [place] % (Auto) 5.8 Eos % (Auto) 0.2 Baso % (Auto) 0.3 Lymph # (Auto) 11.5 H [place] # (Auto) 1.8 H Eos # (Auto) 0.1 Baso # (Auto) 0.1 Abs Immat Gran (auto) 0.98 H Absolute Neuts (auto) 16.0 H Absolute Nucleated RBC 0.020 H Nucleated RBC % (auto) 0.1 Smear Tech's Comments VERIFIED Smear Path Review SEE NOTE Anion Gap 14 Estim Creat Clear Calc 30.1 Estimated GFR 44 Random Glucose 104 Lactic Acid 0.7 Calcium 8.3 L C-Reactive Protein 14.57 H Urine Color Yellow Urine Appearance Clear Urine pH 5.5 Ur Specific [place] 1.015 Urine Protein 30 (1+) H Urine Glucose (UA) Negative Urine Ketones 15 Urine Blood Small (1+) H Urine Nitrite Negative Ur Leukocyte Esterase Small (1+) H Urine RBC 0-2 Urine WBC 6-10 Ur Squamous Epith Cells 0-2 Urine Bacteria Trace Hyaline Casts 0-2 Assessment and Plan (1) Leukocytosis: Status: Acute (2) Acute UTI: Status: Acute Assessment and Plan: d2 83yo F long-term resident of [facility] with severe dementia sent in with increasing lethargy, poor PO intake, and frequent falls. Recently diagnosed E coli UTI treated with cefuroxime and recently got IV fluids for CATHY/CKD3. Noted to have marked leukocytosis, abd tenderness, and 1 episode of diarrhea. leukocytosis - suspicion for Cdiff- started empiric vancomycin 04/10- pending Cdiff assay. CT A/P pending UTI - continue treatment but with ceftriaxone 04/10-; BCx + UCx sent; if negative, will d/c antibiotics as pt will have completed a full 7-day course including the 5 days of cefuroxime she got at LTC acute encephalopathy due to infection superimposed on dementia - treat infection as above CATHY/CKD3 - unknown baseline SCr; Cr improving; continue IV fluids chronic pain - continue gabapentin VTE ppx - LMWH dispo - return to LTC eventually In my clinical judgment, the patient requires continued inpatient hospitalization for the following reasons: IV ABX, leukocytosis Total time managing care of this patient today: 35 minutes. Quality Stroke Does the patient have a stroke diagnosis?: No VTE Prior VTE?: No VTE Risk Level:: Medical - moderate - high VTE Device Contraindication: N/A - Device Ordered VTE Drug Contraindication: N/A - Med Ordered
[2024-04-11] MEDS: Calcium + Vitamin D 250 MG TABLET 500 MG PO (09:43)
[2024-04-11] MEDS: Gabapentin 100 MG CAPSULE PO ×2 (09:43→20:17)
[2024-04-11] MEDS: Losartan Potassium 25 MG TABLET PO (09:43)
[2024-04-11] MEDS: Ferrous Sulfate 324 MG TABLET.DR PO (09:43)
[2024-04-11] MEDS: Phenazopyridine HCL 200 MG TABLET PO ×2 (12:26→17:02)
[2024-04-11] MEDS: vancomycin HCL 125 MG CAPSULE PO ×3 (12:27→23:47)
[2024-04-11 12:35] LABS: Hematocrit 24.4 % (37.0-47.0); Hemoglobin 7.7 g/dl (12.0-16.0); Mean Corpuscular HGB Conc 31.6 g/dl (31.0-35.0); Mean Corpuscular Hemoglobin 30.6 pg (27.0-33.0); Mean Corpuscular Volume 96.8 fL (80.0-98.0); Mean Platelet Volume 9.4 fL (9.4-12.3); Platelet Count 266 X10*3/uL (160-400); Red Blood Count 2.52 X10*6/uL (4.20-5.50); Red Cell Distribution Width 14.4 % (11.0-16.0); White Blood Count 26.2 X10*3/uL (4.8-10.8)
[2024-04-11 12:53] LABS: Anion Gap 12 (12-20); Blood Urea Nitrogen 15 mg/dL (9-16); Calcium 8.5 mg/dL (8.4-10.2); Carbon Dioxide 22 mmol/L (22-29); Chloride 111 mmol/L (96-108); Creatinine Clr Calc Pharmacy 35.2; Estimated Glomerular Filt Rate 53; Glucose Random 94 mg/dL (60-115); Potassium 4.2 mmol/L (3.3-5.1); Sodium 141 mmol/L (135-145)
[2024-04-11 13:13] LABS: Immature Retic Fraction 13.2 % (3.0-15.9); Retic HGB Equivalent 23.9 pg (30.0-35.0); Reticulocytes Absolute 0.025 X10*6/uL (0.026-0.095)
[2024-04-11 13:18] LABS: Iron 13 mcg/dL (30-160); Lactate Dehydrogenase 332 U/L (122-220); Percent Iron Saturation 7 % (15-50); Total Iron Binding Capacity 180 mcg/dL (228-428); Unsaturated Iron Binding 167 ug/dL
[2024-04-11] MEDS: cefTRIAXone sodium 1 GM in 0.9 % Sodium Chloride 50 ML IV (13:20)
[2024-04-11 13:38] LABS: Ferritin 101 ng/mL (10-250)
--- NOTE | 2024-04-11 14:17 | MHC.SL.SWA ---
Speech Pathologist Impression: Risk of Aspiration Due to: Poor PO Intake Reduced Cognition Dysphasia Diet Status: Liquid Consistency and Strategies for Safe Swallow: Liquid Intake Recommendation: Thin Liquid Intake Strategies: Small Sips Solid Food Consistency: Dietary Recommendations: Chopped/Advanced (NDD3) Additional Modifications to Solid Foods: Patient is able to independently eat, but due to food/eating avoidance behaviors would benefit from supervision during her meals. Encourage patient to persist with meal, eat items with high nutritional value, remove items that might be consumed at a later time as a snack (e.g. nutritional shakes). Alternate liquids and solids. Oral Medication Intake: Whole with Liquid Please contact the pharmacy regarding appropriate crushable or liquid drug formulations that are available whenever modified delivery is recommended. Compensatory Strategies and Precautions to be Taken for Safe Swallow: Sitting Upright (90 deg) Small Bites and Sips Alternate Liquids/Solids Avoid Specific Foods Supervision While Eating and Drinking for Safe Swallow: Total Supervision (1:1) Foods to Avoid: Hard difficult to chew solids Swallowing Recommended Treatments: Compens. Strategy Educat. Recommendation for Speech: Inpatient Speech Therapy Comment: Patient presents with mild oral phase dysphagia secondary to limited dentition, has food avoidance behaviors. Recommend start diet of Chopped/Advanced (NDD3), Thin liquids, pills whole with liquid. , RD notified of recommendation by secure text, RN in person. [employer]ING SUPERVISOR will continue to follow for toleration of diet 1-2X. Frequency/Duration: Date Range for Service Req: Timeline to reassess: Link Trainer Mechanic Clinican/Clinical Fellow: No Supervisory Statement: I have reviewed and agree with the student/clinical fellow's documentation: N/A Speech Language Pathologist: Lakeshia Gaming M.A., [facility]-[employer] PLACING SUPERVISOR
[2024-04-11 15:40] VITALS: BP 151/67; PULSE 74; RESP 18; TEMP 36.5; O2SAT 97
[2024-04-11] MEDS: Enoxaparin Sodium 30 MG/0.3 ML SYRINGE SUBCUT (16:48)
[2024-04-11] MEDS: metroNIDAZOLE/NS 500 MG/100 ML PIGGYBACK 100 MG IV ×2 (16:49→23:46)
[2024-04-11] MEDS: Sennosides 8.6 MG TABLET 17.2 MG PO (20:15)
[2024-04-11] MEDS: Acetaminophen 325 MG TABLET 650 MG PO (20:17)
[2024-04-11] MEDS: 0.9 % Sodium Chloride Flush 3 ML SYRINGE IVFLUSH (20:18)
[2024-04-11] MEDS: OLANZapine 5 MG TABLET PO (23:47)
[2024-04-11 23:53] VITALS: BP 136/65; PULSE 78; RESP 18; TEMP 36.2; O2SAT 95
[2024-04-12] VITALS (9 sets, daily range): BP systolic 140–172; BP diastolic 68–82; PULSE 66–83; RESP 16–18; TEMP 36.1–36.9; O2SAT 93–98
[2024-04-12] MEDS: vancomycin HCL 125 MG CAPSULE PO ×3 (05:27→17:14)
[2024-04-12 06:53] LABS: Hematocrit 21.3 % (37.0-47.0); Mean Corpuscular HGB Conc 31.9 g/dl (31.0-35.0); Mean Corpuscular Hemoglobin 30.5 pg (27.0-33.0); Mean Corpuscular Volume 95.5 fL (80.0-98.0); Mean Platelet Volume 9.6 fL (9.4-12.3); Platelet Count 274 X10*3/uL (160-400); Red Blood Count 2.23 X10*6/uL (4.20-5.50); Red Cell Distribution Width 14.4 % (11.0-16.0); White Blood Count 23.2 X10*3/uL (4.8-10.8)
[2024-04-12 07:00] LABS: Anion Gap 10 (12-20); Blood Urea Nitrogen 11 mg/dL (9-16); Carbon Dioxide 23 mmol/L (22-29); Chloride 113 mmol/L (96-108); Creatinine Clr Calc Pharmacy 39.6; Estimated Glomerular Filt Rate > 60; Glucose Random 93 mg/dL (60-115); Potassium 3.6 mmol/L (3.3-5.1); Sodium 142 mmol/L (135-145)
[2024-04-12 07:34] LABS: Folate 9.9 ng/mL (> or = 4.0); Vitamin B12 1739 pg/mL (200-900)
[2024-04-12 07:47] LABS: Hemoglobin 6.8 g/dl (12.0-16.0)
[2024-04-12] MEDS: Phenazopyridine HCL 200 MG TABLET PO ×3 (08:45→17:14)
[2024-04-12] MEDS: Gabapentin 100 MG CAPSULE PO ×2 (08:45→20:08)
[2024-04-12] MEDS: Calcium + Vitamin D 250 MG TABLET 500 MG PO (08:45)
[2024-04-12] MEDS: Losartan Potassium 25 MG TABLET PO (08:45)
[2024-04-12] MEDS: Ferrous Sulfate 324 MG TABLET.DR PO (08:45)
[2024-04-12] MEDS: metroNIDAZOLE/NS 500 MG/100 ML PIGGYBACK 100 MG IV (08:50)
[2024-04-12] MEDS: 0.9 % Sodium Chloride 1,000 ML 75 ML IVCONT (09:37)
--- NOTE | 2024-04-12 09:48 | HO.PM.IMPN ---
Subjective Subjective Date of Service: 04/12/24 Interval History: abd drier tender Hb 6.8 no hematochezia or melena pt with advanced dementia; unable to obtain ROS Review of Systems Review of Systems: Yes Unobtainable due to mental status Physical Exam Vital Signs: Vital Signs: Last Vital Signs Temp 98 F 04/12/24 08:00 Pulse 78 04/12/24 08:00 Resp 18 04/12/24 08:00 BP 143/82 H 04/12/24 08:00 Pulse Ox 95 04/11/24 23:53 O2 Del Method Room Air 04/11/24 23:53 BMI result Body Mass Index 20.5 Gen: in no acute distress HEENT: sclera anicteric, dry mucus membranes Neck: supple Lungs: clear to auscultation bilaterally Heart: regular rate and rhythm, no murmurs Abd: soft, diffuse tenderness without reboud/guarding : no CVA tenderness Ext: no edema Skin: warm/well-perfused Neuro: alert, minimally verbal, moving all extremities Psych: impaired insight Objective Data Active Medications Acetaminophen (Acetaminophen 325 Mg Tablet) 650 mg PO Q6H PRN PRN Reason: Pain, Mild (Pain Scale 1-3), fever or headache Last Admin: 04/11/24 20:17 Dose: 650 mg Documented By: KAMARI Calcium Carbonate/Cholecalciferol (Calcium + Vitamin D 250 Mg Tablet) 500 mg PO DAILY [facility] Last Admin: 04/12/24 08:45 Dose: 500 mg Documented By: OLGA Enoxaparin Sodium (Enoxaparin Sodium 30 Mg/0.3 Ml Syringe) 30 mg SUBCUT Q24H [facility] Last Admin: 04/11/24 16:48 Dose: 30 mg Documented By: RAMESH Ferrous Sulfate (Ferrous Sulfate 324 Mg Tablet.) 324 mg PO DAILY [facility] Last Admin: 04/12/24 08:45 Dose: 324 mg Documented By: OLGA Gabapentin (Gabapentin 100 Mg Capsule) 100 mg PO BID [facility] Last Admin: 04/12/24 08:45 Dose: 100 mg Documented By: OLGA Sodium Chloride (Ns) 1,000 mls @ 75 mls/hr IVCONT .[id number] [facility] Last Infusion: 04/12/24 09:39 Dose: 0 mls/hr Documented By: OLGA Ceftriaxone Sodium 1 gm/ (Sodium Chloride) 50 mls @ 100 mls/hr IV Q24H [facility] Last Infusion: 04/11/24 13:59 Dose: Infused Documented By: GERALD Metronidazole (Flagyl) 500 mg in 100 mls @ 100 mls/hr IV Q8H [facility] Last Admin: 04/12/24 08:50 Dose: 100 mls/hr Documented By: OLGA Losartan Potassium (Losartan Potassium 25 Mg Tablet) 25 mg PO DAILY [facility]; Protocol Last Admin: 04/12/24 08:45 Dose: 25 mg Documented By: OLGA Magnesium Hydroxide (Milk Of Magnesia 30 Ml Oral.Susp) 30 ml PO DAILY PRN PRN Reason: Constipation Ondansetron HCl (Ondansetron Hcl 4 Mg/2 Ml Vial) 4 mg IVPUSH Q8H PRN PRN Reason: Nausea and Vomiting Phenazopyridine HCl (Phenazopyridine Hcl 200 Mg Tablet) 200 mg PO TIDWM [facility] Stop: 04/13/24 08:01 Last Admin: 04/12/24 08:45 Dose: 200 mg Documented By: OLGA Polyethylene Glycol (Polyethylene Glycol 3350 17 Gm Powd.Pack) 17 gm PO DAILY PRN PRN Reason: Constipation Senna (Sennosides 8.6 Mg Tablet) 17.2 mg PO BEDTIME [facility] Last Admin: 04/11/24 20:15 Dose: 17.2 mg Documented By: KAMARI Sodium Chloride (0.9 % Sodium Chloride Flush 3 Ml Syringe) 3 ml IVFLUSH QSHIFT [facility] Last Admin: 04/12/24 08:50 Dose: Not Given Documented By: OLGA Non-Admin Reason: IV Running Vancomycin HCl (Vancomycin Hcl 125 Mg Capsule) 125 mg PO Q6H [facility] Last Admin: 04/12/24 05:27 Dose: 125 mg Documented By: KAMARI Labs 04/12/24 06:15 04/12/24 06:15 Labs: Laboratory Results - last 24 hr 04/11/24 04/12/24 12:25 06:15 MCV 96.8 95.5 MCH 30.6 30.5 MCHC 31.6 31.9 RDW 14.4 14.4 Plt Count 266 274 MPV 9.4 9.6 Absolute Nucleated RBC 0.000 0.000 Nucleated RBC % (auto) 0.0 0.0 Absolute Retic 0.025 L Percent Retic 1.0 Immature Retic Fraction 13.2 Retic Hgb Equivalent 23.9 L Anion Gap 12 10 L Estim Creat Clear Calc 35.2 39.6 Estimated GFR 53 > 60 Random Glucose 94 93 Calcium 8.5 8.0 L Iron 13 L TIBC 180 L % Saturation 7 L Unsat Iron Binding 167 Ferritin 101 Lactate Dehydrogenase 332 H C-Reactive Protein 9.50 H Vitamin B12 1739 H Folate 9.9 Blood Type A Positive Antibody Screen NEGATIVE Crossmatch See Detail Microbiology Microbiology Results: Microbiology 04/10/24 12:52 Blood Culture - Preliminary Blood - Venous No growth after 24 hours. 04/10/24 12:05 Blood Culture - Preliminary Blood - Venous No growth after 24 hours. 04/10/24 Unknown Urine Culture - Final Urine Catheterized - Iqbal Catheter No growth. Assessment and Plan (1) Leukocytosis: Status: Acute (2) Acute UTI: Status: Acute Assessment and Plan: d3 83yo F long-term resident of [facility] with severe dementia sent in with increasing lethargy, poor PO intake, and frequent falls. Recently diagnosed E coli UTI treated with cefuroxime and recently got IV fluids for CATHY/CKD3. Noted to have marked leukocytosis, abd tenderness, and [address] with colitis and incidental splenomegaly colitis - suspicion for Cdiff- started empiric vancomycin 04/10- pending Cdiff assay. also ceftriaxone 04/10-, metronidazole 04/11- recent UTI - was on cefuroxime 04/04-04/09, on ceftriaxone for colitis as above; UCx negative; follow BCx iron deficiency anemia - transfuse 1u pRBCs [attempted to call guardian and left a message; 2-physician consent signed] and recheck H+H in am; check FOBT; replete Fe acute encephalopathy due to infection superimposed on dementia - treat infection as above CATHY/CKD3 - unknown baseline SCr; Cr improved [had been 1.8 on 04/04 at [facility]]; d/c IV fluids incidental massive splenomegaly - outpt workup if desired by guardian chronic pain - continue gabapentin VTE ppx - LMWH dispo - return to LTC eventually In my clinical judgment, the patient requires continued inpatient hospitalization for the following reasons: IV ABX + transfusion Total time managing care of this patient today: 35 minutes. Quality Stroke Does the patient have a stroke diagnosis?: No VTE Prior VTE?: No VTE Risk Level:: Medical - moderate - high VTE Device Contraindication: N/A - Device Ordered VTE Drug Contraindication: N/A - Med Ordered
[2024-04-12 11:23] LABS: CDiff Gene PCR POSITIVE (Negative)
[2024-04-12 11:52] LABS: CDIFF Internal ctrl Dots and bkg OK (V); CDiff Toxin Positive (Negative)
[2024-04-12 14:34] LABS: OBS Int Ctl Valid YES; OBS1 NEGATIVE (NEGATIVE)
[2024-04-12] MEDS: 0.9 % Sodium Chloride Flush 3 ML SYRINGE IVFLUSH ×2 (17:16→20:09)
[2024-04-12] MEDS: Enoxaparin Sodium 30 MG/0.3 ML SYRINGE SUBCUT (17:16)
[2024-04-12] MEDS: Sennosides 8.6 MG TABLET 17.2 MG PO (20:08)
[2024-04-12] MEDS: LORazepam 2 MG/ML VIAL 1 MG IVPUSH (20:08)
--- NOTE | 2024-04-12 20:39 | PC.NURSE ---
Assumed care of patient at 19:00. Pt continues on s3, seen this admission for AMS and UTI. Pt +cdiff, contact precautions maintained, pt on po vanco and pyridium. Pt has in-room camera for hx dementia with impulsiveness this admission. 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 Pt emotional and crying with difficulty redirecting and reassuring when assisted back into bed. Pt A&Ox1 to name only. Covering Dr. Whitaker notified with 1x stat ativan IVP ordered and given. Pt medicated for pain with scheduled gabapentin. Bed alarm on and safety measures including camera continue.
[2024-04-13] MEDS: vancomycin HCL 125 MG CAPSULE PO ×5 (00:13→23:57)
[2024-04-13 02:34] VITALS: RESP 18
[2024-04-13 08:00] VITALS: BP 133/68; PULSE 57; RESP 16; TEMP 36.8; O2SAT 94
[2024-04-13] MEDS: Losartan Potassium 25 MG TABLET PO (08:39)
[2024-04-13] MEDS: Ferrous Sulfate 324 MG TABLET.DR PO (08:39)
[2024-04-13] MEDS: Calcium + Vitamin D 250 MG TABLET 500 MG PO (08:39)
[2024-04-13] MEDS: Gabapentin 100 MG CAPSULE PO ×2 (08:39→21:07)
[2024-04-13] MEDS: Phenazopyridine HCL 200 MG TABLET PO (08:39)
[2024-04-13] MEDS: 0.9 % Sodium Chloride Flush 3 ML SYRINGE IVFLUSH ×3 (08:44→21:10)
--- NOTE | 2024-04-13 09:01 | HO.PM.IMPN ---
Subjective Subjective Date of Service: 04/13/24 Interval History: states abd pain has improved no fever minimal diarrhea Review of Systems Review of Systems: Yes all other systems are reviewed and are negative Physical Exam Vital Signs: Vital Signs: Last Vital Signs Temp 98.3 F 04/13/24 08:00 Pulse 57 04/13/24 08:00 Resp 16 04/13/24 08:00 BP 133/68 04/13/24 08:00 Pulse Ox 94 04/13/24 08:00 O2 Del Method Room Air 04/13/24 08:00 BMI result Body Mass Index 20.5 Gen: in no acute distress HEENT: sclera anicteric, dry mucus membranes Neck: supple Lungs: clear to auscultation bilaterally Heart: regular rate and rhythm, no murmurs Abd: soft, mild diffuse tenderness without reboud/guarding : no CVA tenderness Ext: no edema Skin: warm/well-perfused Neuro: alert, minimally verbal, moving all extremities Psych: impaired insight Objective Data Active Medications Acetaminophen (Acetaminophen 325 Mg Tablet) 650 mg PO Q6H PRN PRN Reason: Pain, Mild (Pain Scale 1-3), fever or headache Last Admin: 04/11/24 20:17 Dose: 650 mg Documented By: KAMARI Calcium Carbonate/Cholecalciferol (Calcium + Vitamin D 250 Mg Tablet) 500 mg PO DAILY [facility] Last Admin: 04/13/24 08:39 Dose: 500 mg Documented By: OLGA Enoxaparin Sodium (Enoxaparin Sodium 30 Mg/0.3 Ml Syringe) 30 mg SUBCUT Q24H [facility] Last Admin: 04/12/24 17:16 Dose: 30 mg Documented By: OLGA Ferrous Sulfate (Ferrous Sulfate 324 Mg Tablet.Dr) 324 mg PO DAILY [facility] Last Admin: 04/13/24 08:39 Dose: 324 mg Documented By: OLGA Gabapentin (Gabapentin 100 Mg Capsule) 100 mg PO BID [facility] Last Admin: 04/13/24 08:39 Dose: 100 mg Documented By: OLGA Losartan Potassium (Losartan Potassium 25 Mg Tablet) 25 mg PO DAILY [facility]; Protocol Last Admin: 04/13/24 08:39 Dose: 25 mg Documented By: OLGA Magnesium Hydroxide (Milk Of Magnesia 30 Ml Oral.Susp) 30 ml PO DAILY PRN PRN Reason: Constipation Ondansetron HCl (Ondansetron Hcl 4 Mg/2 Ml Vial) 4 mg IVPUSH Q8H PRN PRN Reason: Nausea and Vomiting Polyethylene Glycol (Polyethylene Glycol 3350 17 Gm Powd.Pack) 17 gm PO DAILY PRN PRN Reason: Constipation Senna (Sennosides 8.6 Mg Tablet) 17.2 mg PO BEDTIME [facility] Last Admin: 04/12/24 20:08 Dose: 17.2 mg Documented By: DANIEL Sodium Chloride (0.9 % Sodium Chloride Flush 3 Ml Syringe) 3 ml IVFLUSH QSHIFT [facility] Last Admin: 04/13/24 08:44 Dose: 3 ml Documented By: GRAZBELLE Vancomycin HCl (Vancomycin Hcl 125 Mg Capsule) 125 mg PO Q6H [facility] Last Admin: 04/13/24 05:38 Dose: 125 mg Documented By: DANIEL Labs 04/12/24 06:15 04/12/24 06:15 Labs: Laboratory Results - last 24 hr 04/12/24 04/12/24 04/12/24 06:15 09:41 09:42 Stool Occult Blood NEGATIVE C. difficile Tox B Gene POSITIVE A* C. difficile Toxin A&B Positive A* C. difficile Interpret SEE NOTE Blood Type A Positive Antibody Screen NEGATIVE Crossmatch See Detail Microbiology Microbiology Results: Microbiology 04/10/24 12:52 Blood Culture - Preliminary Blood - Venous No growth after 48 hours. 04/10/24 12:05 Blood Culture - Preliminary Blood - Venous No growth after 48 hours. Assessment and Plan (1) Leukocytosis: Status: Acute (2) Acute UTI: Status: Acute Assessment and Plan: d4 83yo F long-term resident of [facility] with severe dementia sent in with increasing lethargy, poor PO intake, and frequent falls. Recently diagnosed E coli UTI treated with cefuroxime and recently got IV fluids for CATHY/CKD3. Noted to have marked leukocytosis, abd tenderness, and [address] with colitis and incidental splenomegaly Cdiff - vancomycin 04/10-04/20. d/c'ed ceftriaxone + metronidazole recent E. coli UTI - was on cefuroxime 04/04-04/09, got ceftriaxone 04/09-04/12; UCx negative; BCx negative severe iron deficiency anemia - transfused 1u pRBCs 04/12/24 [attempted to call guardian and left a message; 2-physician consent signed]. recheck H+H pending. FOBT negative. replete Fe acute encephalopathy due to infection superimposed on dementia - treat infection as above CATHY/CKD3 - unknown baseline SCr; Cr improved with IV fluids [had been 1.8 on 04/04 at [facility]] incidental massive splenomegaly - outpt workup if desired by guardian chronic pain - continue gabapentin VTE ppx - LMWH dispo - return to LTC likely tomorrow In my clinical judgment, the patient requires continued inpatient hospitalization for the following reasons: Cdiff + severe anemia Total time managing care of this patient today: 40 minutes. Quality Stroke Does the patient have a stroke diagnosis?: No VTE Prior VTE?: No VTE Risk Level:: Medical - moderate - high VTE Device Contraindication: N/A - Device Ordered VTE Drug Contraindication: N/A - Med Ordered
[2024-04-13 09:32] LABS: Hematocrit 26.8 % (37.0-47.0); Hemoglobin 8.6 g/dl (12.0-16.0); Mean Corpuscular HGB Conc 32.1 g/dl (31.0-35.0); Mean Corpuscular Hemoglobin 29.7 pg (27.0-33.0); Mean Corpuscular Volume 92.4 fL (80.0-98.0); Mean Platelet Volume 9.2 fL (9.4-12.3); Platelet Count 282 X10*3/uL (160-400); Red Cell Distribution Width 16.8 % (11.0-16.0); White Blood Count 20.9 X10*3/uL (4.8-10.8)
[2024-04-13 09:43] LABS: Anion Gap 14 (12-20); Blood Urea Nitrogen 8 mg/dL (9-16); Calcium 8.4 mg/dL (8.4-10.2); Carbon Dioxide 23 mmol/L (22-29); Chloride 110 mmol/L (96-108); Estimated Glomerular Filt Rate 54; Glucose Random 98 mg/dL (60-115); Potassium 3.6 mmol/L (3.3-5.1); Sodium 143 mmol/L (135-145)
[2024-04-13 15:31] VITALS: BP 140/75; PULSE 65; RESP 16; TEMP 36.4; O2SAT 93
[2024-04-13] MEDS: Enoxaparin Sodium 30 MG/0.3 ML SYRINGE SUBCUT (16:15)
[2024-04-13 23:06] VITALS: BP 160/68; PULSE 66; RESP 18; TEMP 36.4; O2SAT 92
[2024-04-14 04:14] VITALS: BP 150/80; PULSE 80; RESP 18; TEMP 36.4; O2SAT 95
[2024-04-14 05:54] LABS: Hematocrit 26.3 % (37.0-47.0); Hemoglobin 8.4 g/dl (12.0-16.0); Mean Corpuscular HGB Conc 31.9 g/dl (31.0-35.0); Mean Corpuscular Hemoglobin 29.3 pg (27.0-33.0); Mean Corpuscular Volume 91.6 fL (80.0-98.0); Mean Platelet Volume 9.3 fL (9.4-12.3); Platelet Count 291 X10*3/uL (160-400); Red Blood Count 2.87 X10*6/uL (4.20-5.50); Red Cell Distribution Width 16.2 % (11.0-16.0); White Blood Count 22.9 X10*3/uL (4.8-10.8)
[2024-04-14 06:06] LABS: Anion Gap 13 (12-20); Blood Urea Nitrogen 9 mg/dL (9-16); C Reactive Protein 3.96 mg/dL (< or = 0.50); Calcium 8.1 mg/dL (8.4-10.2); Carbon Dioxide 24 mmol/L (22-29); Chloride 108 mmol/L (96-108); Estimated Glomerular Filt Rate 54; Glucose Random 90 mg/dL (60-115); Potassium 3.5 mmol/L (3.3-5.1); Sodium 141 mmol/L (135-145)
[2024-04-14] MEDS: vancomycin HCL 125 MG CAPSULE PO ×2 (06:19→11:46)
[2024-04-14 08:08] VITALS: BP 148/65; PULSE 68; RESP 18; TEMP 36.6; O2SAT 95
--- NOTE | 2024-04-14 08:32 | MHC.SLORD ---
Speech Language Pathology Order Status: ZIPPER REPAIRER attempted to see patient this morning for PO trials. Per FINANCIAL ASSISTANCE SPECIALIST, patient refused breakfast, stating that she was not hungry. Patient again refusing PO offered by ZIPPER REPAIRER. Patient getting washed up by FINANCIAL ASSISTANCE SPECIALIST. ZIPPER REPAIRER will re-attempt tx in the afternoon if schedule allows, otherwise plan for tomorrow a.m. Patient is presently on a chopped diet (NDD3) with thin liquids, to be directly supervised at meal time.
[2024-04-14] MEDS: 0.9 % Sodium Chloride Flush 3 ML SYRINGE IVFLUSH (08:38)
[2024-04-14] MEDS: Calcium + Vitamin D 250 MG TABLET 500 MG PO (08:39)
[2024-04-14] MEDS: Ferrous Sulfate 324 MG TABLET.DR PO (08:39)
[2024-04-14] MEDS: Gabapentin 100 MG CAPSULE PO (08:39)
[2024-04-14] MEDS: Acetaminophen 325 MG TABLET 650 MG PO (08:40)
[2024-04-14] MEDS: Losartan Potassium 25 MG TABLET PO (08:40)
--- NOTE | 2024-04-14 10:47 | MHC.CM.PN ---
CM ATTEMPTD TO CONTACT PT'S GUARDIAN LEON BROOKLYNN [phone], DETAILED MESSAGE LEFT, PT RETURNING TO [facility] AT 1:30PM VIA ROHINI
--- NOTE | 2024-04-14 11:04 | PM.DS ---
DS: Providers Provider Date of Service: 04/14/24 Date of admission: 04/10/24 15:37 Primary care physician: Loy Ramon MD DS: Diagnosis Discharge Diagnosis (1) Leukocytosis: Status: Acute (2) Acute UTI: Status: Acute DS: Summary Hospital Course Hospital Course: History of presenting illness Date of Service: 04/10/24 Chief Complaint: lethargy 83yo F long-term resident of [facility] with severe dementia sent in with increasing lethargy, poor PO intake, and frequent falls. She is minimally verbal and as such, history obtained from review of SNF records and per the ED physicians. She was diagnosed with an E coli UTI and started cefuroxime on 04/04/24. She was also noted to have CATHY/CKD3 with SCr 1.81on 04/04/24 (unknown baseline SCr) and was given a liter of 1L IV NS with improvement in the SCr to 1.5. Here SCr is 1.17. Temp is 100, HR 90, BP 159/67, RR 18. She has a marked leukocytosis with WBC of 30.4, with normal differential. CRP pending. She had a large, loose watery stool and Cdiff assay was ordered. Hospital course. 83yo F long-term resident of [facility] with severe dementia sent in with increasing lethargy, poor PO intake, and frequent falls, recently treated with antibiotics and IV fluids for CATHY and chronic kidney disease stage 3 , workup showed marked leukocytosis, CT abdomen showed colitis and incidental splenomegaly patient noted to have abdominal tenderness, C diff toxin positive, patient treated with vancomycin, ceftriaxone and metronidazole discontinued, patient responded well to above treatment, WBC is trending down, diarrhea has resolved, patient received 1 unit of packed RBC on April 12, 2 physicians signed consent, repeat hematocrit is improved, fecal occult blood test is negative, recommend to continue iron supplement,, acute toxic metabolic encephalopathy likely due to C diff colitis seems to have resolved, patient remains pleasantly confused due to dementia, being discharged back to long-term care facility on by mouth Flagyl end date April 20. Patient seen by speech therapy currently on chopped diet with thin liquids, requiring supervision with meals ,recommend to continue speech therapy as outpatient. CATHY/CKD3 unknown baseline SCr; Cr improved with IV fluids [had been 1.8 on 04/04 at [facility]] Incidental massive splenomegaly noted on CT abdomen and pelvis, recommend outpatient workup if desired by guardian. chronic pain - continue gabapentin and Tylenol, Celebrex as needed. Time Attestation Discharge Coordination Time (in mins): 40 Quality: Safe Use of Opioids Does Pt have an Active Cancer Diagnosis on the Problem List?: No Quality: Stroke Does the patient have a stroke diagnosis?: No Physical Exam Vital Signs: Vital Signs: Last Vital Signs Temp 98 F 04/14/24 08:08 Pulse 68 04/14/24 08:08 Resp 18 04/14/24 08:08 BP 148/65 H 04/14/24 08:08 Pulse Ox 95 04/14/24 08:08 O2 Del Method Room Air 04/14/24 08:08 BMI result Body Mass Index 20.5 Const: Other: Gen: in no acute distress HEENT: sclera anicteric Neck: supple Lungs: clear to auscultation bilaterally Heart: regular rate and rhythm, no murmurs Abd: soft, nontender bowel sounds audible : no CVA tenderness Ext: no edema Skin: warm/well-perfused Neuro: alert, moving all extremities Psych: impaired insight DS: Data Data Completed and Pending Labs on day of discharge: Laboratory Results - last 24 hr 04/14/24 05:26 WBC 22.9 H RBC 2.87 L Hgb 8.4 L Hct 26.3 L MCV 91.6 MCH 29.3 MCHC 31.9 RDW 16.2 H Plt Count 291 MPV 9.3 L Absolute Nucleated RBC 0.000 Nucleated RBC % (auto) 0.0 Sodium 141 Potassium 3.5 Chloride 108 Carbon Dioxide 24 Anion Gap 13 BUN 9 Creatinine 0.98 Estim Creat Clear Calc 36.0 Estimated GFR 54 Random Glucose 90 Calcium 8.1 L C-Reactive Protein 3.96 H Preliminary micro results at discharge 04/10/24 12:52 Blood Culture - Preliminary Blood - Venous No growth after 48 hours. 04/10/24 12:05 Blood Culture - Preliminary Blood - Venous No growth after 48 hours. Discharge Plan Discharge Patient Disposition: Xfer [facility] Discharge Diagnosis: C diff colitis Recent E coli UTI Acute on chronic anemia Referrals: [facility] [Outside] - 1 Day (RESUMPTION OF LTC) Loy Ramon MD [Primary Care Provider] - 1 Week Discharge Medications: New vancomycin 125 mg Capsule 125 mg PO Q6H Qty: 26 0RF Continued acetaminophen 500 mg Tablet 1,000 mg PO TID ferrous sulfate 325 mg (65 mg iron) Tablet 325 mg PO DAILY losartan 25 mg tablet 25 mg PO DAILY gabapentin 100 mg capsule 100 mg PO BID Icy Hot (menthol) 5 % Adhesive Patch,Medicated 1 patch TOPICAL DAILY calcium carbonate-vitamin D3 [Calcium 600 + D(3)] 600 mg-10 mcg (400 unit) Tablet 1 tab PO DAILY Discontinued celecoxib 200 mg capsule 200 mg PO DAILY sennosides [senna] 8.6 mg Tablet 17.2 mg PO BEDTIME cefuroxime axetil 250 mg tablet 250 mg PO BID Rx Instructions: x 7 days, finish 04/11/24 Discharge Orders: Discharge Order (Routine); Ordered 04/14/24 Ordered By: Kvng Lloyd Diet: Advance to usual diet Activity on Discharge: Chopped solids Stand Alone Forms: Patient Portal Discharge page Print Language: Ukrainian Care Plan Goals: Take vancomycin 1 tablet q.6 hours end date April 20. Continue iron supplement Celebrex as needed, continue Tylenol for pain. Health Concerns: Incidental massive splenomegaly outpatient workup if desired by guardian Plan of Treatment: Outpatient follow-up with primary care physician Assessment: As above
--- NOTE | 2024-04-14 12:17 | PC.NURSE ---
Attempted to call [facility] in [place] for report, switchboard receptionist picked up the phone was put on hold for good amount, hanged up and called but no one picked up the phone.
--- NOTE | 2024-04-14 13:08 | MHC.SL.SWA ---
Speech Pathologist Impression: Oral phase dysphagia, risk of aspiration Risk of Aspiration Due to: Poor PO Intake Reduced Cognition Dysphasia Diet Status: No changes recommended at this time Liquid Consistency and Strategies for Safe Swallow: Liquid Intake Recommendation: Thin Liquid Intake Strategies: Small Sips Solid Food Consistency: Dietary Recommendations: Chopped/Advanced (NDD3) Additional Modifications to Solid Foods: Patient presents with mild oral phase dysphagia secondary to limited dentition, has food avoidance behaviors. Recommend continue diet of Chopped/Advanced (NDD3), Thin liquids, pills whole with liquid. Oral Medication Intake: Whole with Liquid Please contact the pharmacy regarding appropriate crushable or liquid drug formulations that are available whenever modified delivery is recommended. Compensatory Strategies and Precautions to be Taken for Safe Swallow: Sitting Upright (90 deg) Small Bites and Sips Alternate Liquids/Solids Rate of Ingestion Change Avoid Specific Foods Supervision While Eating and Drinking for Safe Swallow: Total Supervision (1:1) Foods to Avoid: Hard difficult to chew solids Swallowing Recommended Treatments: Compens. Strategy Educat. Recommendation for Speech: Continue ST at next level of care to re-assess for potential upgrade if/when appropriate. Client Care Representative Clinican/Clinical Fellow: No Supervisory Statement: I have reviewed and agree with the student/clinical fellow's documentation: N/A Speech Language Pathologist: Veronica Cooper M.A., CCC-INSTRUMENT PERSON
[2024-04-14 15:39] VITALS: BP 159/71; PULSE 73; RESP 16; TEMP 37.1; O2SAT 94
== END 2024-04-14 15:49 | DRG 371 ==
LOC: HO.ED 13:35 → HO.EDOVER 15:43 → HO.S3 19:43
PROVIDERS: Admitting Provider Family Medicine; Emergency Provider Emergency Medicine; PCP Hospitalist; Visit Provider Hospitalist
DX: A04.72 Enterocolitis due to Clostridium difficile, not specified as recurrent (principal); G92.8 Other toxic encephalopathy; N39.0 Urinary tract infection, site not specified; E78.5 Hyperlipidemia, unspecified; D50.9 Iron deficiency anemia, unspecified; F03.C0 Unspecified dementia, severe, without behavioral disturbance, psychotic disturbance, mood disturbance, and anxiety; B96.20 Unspecified Escherichia coli [E. coli] as the cause of diseases classified elsewhere; N18.30 Chronic kidney disease, stage 3 unspecified; G89.29 Other chronic pain; Z79.899 Other long term (current) drug therapy
CPT/HCPCS: 36415; 71045; 73502; 74177; 80048; 81001; 82272; 82607; 82728; 82746; 83540; 83605; 83615; 85025; 85027; 85045; 86140; 86850; 86900; 86901; 86923; 87040; 87086; 87324; 87493; 92526; 92610; 99285; J0696; J1650; J1836; J2060; P9016; Q9967

== ENCOUNTER → 2024-04-10 15:37 | Outpatient (BNV) | payer MEDICARE, MEDICAID, SELFPAY | PROVIDERS: Admitting Provider Family Medicine; Emergency Provider Emergency Medicine; PCP Hospitalist; Visit Provider Family Medicine | DX: D72.829 Elevated white blood cell count, unspecified (principal); N39.0 Urinary tract infection, site not specified | CPT/HCPCS: 99223; 99232; 99239 ==

== ENCOUNTER → 2024-06-26 10:20 | Outpatient (BNV) | payer MEDICARE, MEDICAID, SELFPAY | PROVIDERS: PCP Internal Medicine; Visit Provider Internal Medicine Medical Oncology | DX: D72.829 Elevated white blood cell count, unspecified (principal) | CPT/HCPCS: 99204 ==

== ENCOUNTER → 2025-10-06 12:24 | Outpatient (BNV) | payer MEDICARE, MEDICAID, SELFPAY | PROVIDERS: Emergency Provider Emergency Medicine; PCP Internal Medicine; Visit Provider Radiology Diagnostic Radiology | DX: K59.00 Constipation, unspecified (principal); I70.0 Atherosclerosis of aorta; I51.7 Cardiomegaly | CPT/HCPCS: 71045; 74177 ==

== ENCOUNTER 2025-10-06 14:53 | Outpatient (BNV) | payer MEDICARE, MEDICAID, SELFPAY | END 2025-10-07 07:23 | PROVIDERS: Admitting Provider Internal Medicine; Emergency Provider Student in an Organized Health Care Education/Training Program; PCP Internal Medicine; Visit Provider Internal Medicine | DX: R00.1 Bradycardia, unspecified (principal) | CPT/HCPCS: 93010 ==

== ENCOUNTER → 2025-10-06 14:53 | Outpatient (BNV) | payer MEDICARE, MEDICAID, SELFPAY | PROVIDERS: Admitting Provider Internal Medicine; Emergency Provider Student in an Organized Health Care Education/Training Program; PCP Internal Medicine; Visit Provider Internal Medicine | DX: N39.0 Urinary tract infection, site not specified (principal) | CPT/HCPCS: 99233 ==

== ENCOUNTER → 2025-10-06 14:53 | Outpatient (BNV) | payer MEDICARE, MEDICAID, SELFPAY | PROVIDERS: Admitting Provider Internal Medicine; Emergency Provider Student in an Organized Health Care Education/Training Program; PCP Internal Medicine; Visit Provider Internal Medicine | DX: R00.1 Bradycardia, unspecified (principal) | CPT/HCPCS: 99223; 99233 ==

== ENCOUNTER → 2025-10-06 14:53 | Outpatient (BNV) | payer MEDICARE, MEDICAID, SELFPAY | PROVIDERS: Admitting Provider Internal Medicine; Emergency Provider Student in an Organized Health Care Education/Training Program; PCP Internal Medicine; Visit Provider Internal Medicine | DX: D64.9 Anemia, unspecified (principal) | CPT/HCPCS: 99221 ==

== ENCOUNTER → 2025-10-06 14:53 | Outpatient (BNV) | payer MEDICARE, MEDICAID, SELFPAY | PROVIDERS: Admitting Provider Internal Medicine; Emergency Provider Student in an Organized Health Care Education/Training Program; PCP Internal Medicine; Visit Provider Internal Medicine | DX: C91.10 Chronic lymphocytic leukemia of B-cell type not having achieved remission (principal); D64.9 Anemia, unspecified; R00.1 Bradycardia, unspecified | CPT/HCPCS: 99222 ==